=== PATIENT | male | born 1990 | race Caucasian/White ===

== ENCOUNTER 2021-08-21 23:25 | Emergency (ER) | payer SELFPAY ==
[~2021-08-21] VITALS: Ht 180.3 cm; Wt 108.9 kg
[2021-08-22 00:13] VITALS: BP 136/74
--- NOTE | 2021-08-22 00:13 | NUR ---
TO LOBBY A/W BED AMBULATORY
--- NOTE | 2021-08-22 01:20 | NUR ---
SEEN AND EXAMINED BY LYLE.
[2021-08-22] MEDS ORDERED: ACET-2619 PO (01:25)
[2021-08-22] MEDS ORDERED: LID5T TP (01:25)
[2021-08-22] MEDS ORDERED: IBUP-2213 PO (01:25)
[2021-08-22 01:40] VITALS: BP 136/74
--- NOTE | 2021-08-22 01:40 | NUR ---
Patient discharged with v/s stable. Written and verbal after care instructions given and explained. Patient verbalized understanding. Ambulatory with steady gait. All questions addressed prior to discharge. Advised to follow up with PMD.
== END 2021-08-22 01:40 | disposition home or self-care (01) ==
LOC: MED 23:25
DX: Z04.1 Encounter for examination and observation following transport accident (principal)
CPT/HCPCS: 99281